=== PATIENT | male | born 1970 | race Caucasian/White ===

== ENCOUNTER 2018-11-20 00:24 | Day surgery (SDC) | payer OTHER, BC ==
[~2018-11-20 00:24] MED LIST: ATOR20 PO; AZIT250 PO; CEPH500 PO; CYCL10; CYCL10 PO; FEXPSEER PO; GEMF600 PO; HYDACE5 PO; HYDCHL25 PO; HYDMOR2; LEVO750 PO; LISI5 PO; NAPR500 PO; OXYACE5T PO; OXYC10ER PO; PROC10 PO; SULTRISS PO; Valium5 MG PO; ZOLP10; [UNRECOGNIZED DRUG - OTHER] PO; [UNRECOGNIZED DRUG - REMARK]; [UNRECOGNIZED DRUG - REMARK]
[2018-11-20] MEDS ORDERED: PROC5 PO (15:06)
[2018-11-20] MEDS ORDERED: CYCL10 PO (15:07)
[2018-11-20] MEDS ORDERED: MECL12.5 PO (15:07)
[2018-11-21] MEDS ORDERED: Invanz1 GM IV (14:19)
== END 2018-11-20 22:37 | disposition home or self-care (01) ==
LOC: ATC 00:24
DX: M86.9 Osteomyelitis, unspecified (principal)
CPT/HCPCS: 36569; 96365; C1751; J1335

== ENCOUNTER 2018-11-21 00:09 | Day surgery (SDC) | payer OTHER, BC ==
[~2018-11-21 00:09] MED LIST changes: +MECL12.5 PO; +PROC5 PO
[2018-11-21] MEDS ORDERED: Invanz1 GM IV (14:19)
== END 2018-11-21 14:32 | disposition home or self-care (01) ==
LOC: ATC 00:09
DX: M86.9 Osteomyelitis, unspecified (principal)
CPT/HCPCS: 96365; J1335

== ENCOUNTER 2018-11-22 00:21 | Day surgery (SDC) | payer OTHER, BC ==
[~2018-11-22 00:21] MED LIST changes: +Invanz1 GM IV
== END 2018-11-22 14:25 | disposition home or self-care (01) ==
LOC: ATC 00:21
DX: M86.9 Osteomyelitis, unspecified (principal)
CPT/HCPCS: 96365; J1335

== ENCOUNTER 2018-11-23 00:04 | Day surgery (SDC) | payer OTHER, BC | END 2018-11-23 14:43 | disposition home or self-care (01) | LOC: ATC 00:04 | DX: M86.9 Osteomyelitis, unspecified (principal) | CPT/HCPCS: 96365; J1335 ==

== ENCOUNTER 2018-11-24 14:32 | Day surgery (SDC) | payer OTHER, BC | END 2018-11-24 15:05 | disposition home or self-care (01) | LOC: ATC 14:32 | DX: M86.9 Osteomyelitis, unspecified (principal); Z88.1 Allergy status to other antibiotic agents; Z88.5 Allergy status to narcotic agent; Z88.0 Allergy status to penicillin; Z88.2 Allergy status to sulfonamides | CPT/HCPCS: 96365; J1335 ==

== ENCOUNTER 2018-11-25 13:50 | Day surgery (SDC) | payer OTHER, BC | END 2018-11-25 14:35 | disposition home or self-care (01) | LOC: ATC 13:50 | DX: M86.9 Osteomyelitis, unspecified (principal) | CPT/HCPCS: 96365; J1335 ==

== ENCOUNTER 2018-11-26 00:17 | Day surgery (SDC) | payer OTHER, BC | END 2018-11-26 14:53 | disposition home or self-care (01) | LOC: ATC 00:17 | DX: M86.9 Osteomyelitis, unspecified (principal); Z88.1 Allergy status to other antibiotic agents; Z88.5 Allergy status to narcotic agent; Z88.0 Allergy status to penicillin; Z88.2 Allergy status to sulfonamides | CPT/HCPCS: 96365; J1335 ==

== ENCOUNTER 2018-11-27 00:06 | Day surgery (SDC) | payer OTHER, BC ==
[2018-11-27 15:16] LABS: BASOPHILS ABSOLUTE AUTO 0.04 K/mm3 (0.00-0.23); BASOPHILS PERCENT AUTO 1 % (0-2); EOSINOPHILS ABSOLUTE AUTO 0.15 K/mm3 (0.00-0.68); EOSINOPHILS PERCENT AUTO 3 % (0-6); Hematocrit 44.5 % (37.0-53.0); Hemoglobin 14.9 g/dL (13.5-17.5); IMMATURE GRAN ABSOLUTE AUTO 0.01 K/mm3 (0.00-0.10); IMMATURE GRAN PERCENT AUTO 0 % (0-1); LYMPHOCYTES ABSOLUTE AUTO 1.15 K/mm3 (0.84-5.20); LYMPHOCYTES PERCENT AUTO 25 % (21-46); MONOCYTES ABSOLUTE AUTO 0.42 K/mm3 (0.16-1.47); MONOCYTES PERCENT AUTO 9 % (4-13); Mean Corpuscular HGB Conc 33.5 g/dL (31.5-36.5); Mean Corpuscular Volume 90 fL (80-100); Mean Platelet Volume 8.8 fL (9.1-12.4); NEUTROPHILS ABSOLUTE AUTO 2.87 K/mm3 (1.96-9.15); NEUTROPHILS PERCENT AUTO 62 % (41-73); Platelet Count 279 K/mm3 (150-400); RDW Coefficient Variation 12.1 % (11.7-14.2); RDW Standard Deviation 39.7 fL (35.1-46.3); Red Blood Cell Count 4.96 M/mm3 (4.30-5.90); White Blood Cell Count 4.64 K/mm3 (4.00-11.30)
[2018-11-27 15:37] LABS: C-REACTIVE PROTEIN, EXT RANGE <0.290 mg/dL (0.000-0.300)
[2018-11-27 15:52] LABS: Alanine Aminotransfer (ALT/SGP 44 U/L (12-78); Albumin, Blood 3.8 g/dL (3.4-5.0); Albumin/Globulin Ratio 1.2 (0.8-1.8); Alk Phos 66 U/L (50-136); Anion Gap 6 mmol/L (6-16); Aspartate Aminotrans (AST/SGOT 33 U/L (12-37); Bilirubin, Total 0.6 mg/dL (0.1-1.0); Blood Urea Nitrogen 14 mg/dL (8-24); Bun/Creatinine Ratio 30.5 (12.0-20.0); CO2, Blood 27 mmol/L (21-32); Calcium, Blood 8.2 mg/dL (8.5-10.1); Chloride, Blood 109 mmol/L (98-108); Creatinine, Blood 0.46 mg/dL (0.60-1.20); Globulin, Blood 3.1 g/dL (2.2-4.0); Glomerular Filtration Rate >60 (60-); Glucose, Blood 105 mg/dL (70-99); Potassium, Blood 3.8 mmol/L (3.5-5.5); Sodium, Blood 142 mmol/L (136-145); Total Protein, Blood 6.9 g/dL (6.4-8.2)
== END 2018-11-27 15:15 | disposition home or self-care (01) ==
LOC: ATC 00:06
PROVIDERS: Internal Medicine Infectious Disease
DX: M86.9 Osteomyelitis, unspecified (principal)
CPT/HCPCS: 80053; 85025; 85651; 86140; 96365; J1335

== ENCOUNTER 2018-11-28 00:46 | Day surgery (SDC) | payer OTHER, BC | END 2018-11-28 14:43 | disposition home or self-care (01) | LOC: ATC 00:46 | DX: M86.9 Osteomyelitis, unspecified (principal) | CPT/HCPCS: 96365; J1335 ==

== ENCOUNTER 2018-11-29 00:06 | Day surgery (SDC) | payer OTHER, BC | END 2018-11-29 09:45 | disposition home or self-care (01) | LOC: ATC 00:06 | DX: M86.9 Osteomyelitis, unspecified (principal) | CPT/HCPCS: 96365; J1335 ==

== ENCOUNTER 2018-11-30 00:46 | Day surgery (SDC) | payer OTHER, BC | END 2018-11-30 08:52 | disposition home or self-care (01) | LOC: ATC 00:46 | DX: M86.9 Osteomyelitis, unspecified (principal) | CPT/HCPCS: J1335 ==

== ENCOUNTER 2018-12-01 09:34 | Day surgery (SDC) | payer OTHER, BC | END 2018-12-01 23:13 | disposition home or self-care (01) | LOC: ATC 09:34 | DX: M86.9 Osteomyelitis, unspecified (principal) | CPT/HCPCS: J1335 ==

== ENCOUNTER 2018-12-03 00:12 | Day surgery (SDC) | payer OTHER, BC | END 2018-12-03 22:35 | disposition home or self-care (01) | LOC: ATC 00:12 | DX: M86.9 Osteomyelitis, unspecified (principal); Z95.828 Presence of other vascular implants and grafts | CPT/HCPCS: 96365; J1335 ==

== ENCOUNTER 2018-12-05 00:04 | Day surgery (SDC) | payer OTHER, BC | END 2018-12-05 09:50 | disposition home or self-care (01) | LOC: ATC 00:04 | DX: M86.9 Osteomyelitis, unspecified (principal) | CPT/HCPCS: 96365; J1335 ==

== ENCOUNTER 2018-12-06 00:03 | Day surgery (SDC) | payer OTHER, BC ==
[2018-12-06 10:11] LABS: BASOPHILS ABSOLUTE AUTO 0.04 K/mm3 (0.00-0.23); BASOPHILS PERCENT AUTO 1 % (0-2); EOSINOPHILS ABSOLUTE AUTO 0.09 K/mm3 (0.00-0.68); EOSINOPHILS PERCENT AUTO 2 % (0-6); Hematocrit 43.4 % (37.0-53.0); Hemoglobin 14.7 g/dL (13.5-17.5); IMMATURE GRAN ABSOLUTE AUTO 0.01 K/mm3 (0.00-0.10); IMMATURE GRAN PERCENT AUTO 0 % (0-1); LYMPHOCYTES ABSOLUTE AUTO 1.05 K/mm3 (0.84-5.20); LYMPHOCYTES PERCENT AUTO 27 % (21-46); MONOCYTES ABSOLUTE AUTO 0.34 K/mm3 (0.16-1.47); MONOCYTES PERCENT AUTO 9 % (4-13); Mean Corpuscular HGB 29.9 pg (26.0-34.0); Mean Corpuscular HGB Conc 33.9 g/dL (31.5-36.5); Mean Corpuscular Volume 88 fL (80-100); Mean Platelet Volume 8.7 fL (9.1-12.4); NEUTROPHILS ABSOLUTE AUTO 2.43 K/mm3 (1.96-9.15); NEUTROPHILS PERCENT AUTO 61 % (41-73); Platelet Count 267 K/mm3 (150-400); RDW Standard Deviation 38.7 fL (35.1-46.3); Red Blood Cell Count 4.92 M/mm3 (4.30-5.90); White Blood Cell Count 3.96 K/mm3 (4.00-11.30)
[2018-12-06 10:44] LABS: C-REACTIVE PROTEIN, EXT RANGE <0.290 mg/dL (0.000-0.300)
[2018-12-06 10:58] LABS: Alanine Aminotransfer (ALT/SGP 39 U/L (12-78); Albumin, Blood 3.9 g/dL (3.4-5.0); Albumin/Globulin Ratio 1.3 (0.8-1.8); Alk Phos 68 U/L (50-136); Anion Gap 5 mmol/L (6-16); Aspartate Aminotrans (AST/SGOT 28 U/L (12-37); Bilirubin, Total 0.9 mg/dL (0.1-1.0); Blood Urea Nitrogen 11 mg/dL (8-24); CO2, Blood 29 mmol/L (21-32); Calcium, Blood 8.9 mg/dL (8.5-10.1); Chloride, Blood 108 mmol/L (98-108); Creatinine, Blood 0.61 mg/dL (0.60-1.20); Globulin, Blood 3.1 g/dL (2.2-4.0); Glomerular Filtration Rate >60 (60-); Glucose, Blood 93 mg/dL (70-99); Potassium, Blood 4.2 mmol/L (3.5-5.5); Sodium, Blood 142 mmol/L (136-145)
== END 2018-12-07 13:10 | disposition home or self-care (01) ==
LOC: ATC 00:03
PROVIDERS: Internal Medicine Infectious Disease
DX: M86.9 Osteomyelitis, unspecified (principal)
CPT/HCPCS: 80053; 85025; 85651; 86140; 96365; J1335

== ENCOUNTER 2018-12-10 00:34 | Day surgery (SDC) | payer OTHER, BC | END 2018-12-10 09:43 | disposition home or self-care (01) | LOC: ATC 00:34 | DX: M86.9 Osteomyelitis, unspecified (principal) | CPT/HCPCS: J1335 ==

== ENCOUNTER 2018-12-11 09:05 | Day surgery (SDC) | payer OTHER, BC ==
[2018-12-11 10:07] LABS: BASOPHILS ABSOLUTE AUTO 0.05 K/mm3 (0.00-0.23); BASOPHILS PERCENT AUTO 1 % (0-2); EOSINOPHILS ABSOLUTE AUTO 0.13 K/mm3 (0.00-0.68); EOSINOPHILS PERCENT AUTO 3 % (0-6); Hematocrit 44.3 % (37.0-53.0); Hemoglobin 14.7 g/dL (13.5-17.5); IMMATURE GRAN ABSOLUTE AUTO 0.01 K/mm3 (0.00-0.10); IMMATURE GRAN PERCENT AUTO 0 % (0-1); LYMPHOCYTES ABSOLUTE AUTO 1.04 K/mm3 (0.84-5.20); LYMPHOCYTES PERCENT AUTO 25 % (21-46); MONOCYTES ABSOLUTE AUTO 0.39 K/mm3 (0.16-1.47); MONOCYTES PERCENT AUTO 9 % (4-13); Mean Corpuscular HGB 29.5 pg (26.0-34.0); Mean Corpuscular HGB Conc 33.2 g/dL (31.5-36.5); Mean Corpuscular Volume 89 fL (80-100); Mean Platelet Volume 8.9 fL (9.1-12.4); NEUTROPHILS ABSOLUTE AUTO 2.52 K/mm3 (1.96-9.15); NEUTROPHILS PERCENT AUTO 61 % (41-73); Platelet Count 256 K/mm3 (150-400); RDW Coefficient Variation 12.2 % (11.7-14.2); RDW Standard Deviation 39.6 fL (35.1-46.3); Red Blood Cell Count 4.99 M/mm3 (4.30-5.90); White Blood Cell Count 4.14 K/mm3 (4.00-11.30)
[2018-12-11 10:35] LABS: Alanine Aminotransfer (ALT/SGP 32 U/L (12-78); Albumin, Blood 3.8 g/dL (3.4-5.0); Albumin/Globulin Ratio 1.2 (0.8-1.8); Alk Phos 70 U/L (50-136); Anion Gap 8 mmol/L (6-16); Aspartate Aminotrans (AST/SGOT 21 U/L (12-37); Bilirubin, Total 0.9 mg/dL (0.1-1.0); Blood Urea Nitrogen 10 mg/dL (8-24); Bun/Creatinine Ratio 24.6 (12.0-20.0); C-REACTIVE PROTEIN, EXT RANGE <0.290 mg/dL (0.000-0.300); CO2, Blood 28 mmol/L (21-32); Calcium, Blood 8.6 mg/dL (8.5-10.1); Chloride, Blood 106 mmol/L (98-108); Creatinine, Blood 0.41 mg/dL (0.60-1.20); Globulin, Blood 3.1 g/dL (2.2-4.0); Glomerular Filtration Rate >60 (60-); Glucose, Blood 79 mg/dL (70-99); Potassium, Blood 4.1 mmol/L (3.5-5.5); Sodium, Blood 142 mmol/L (136-145); Total Protein, Blood 6.9 g/dL (6.4-8.2)
== END 2018-12-11 09:59 | disposition home or self-care (01) ==
LOC: ATC 09:05
PROVIDERS: Internal Medicine Infectious Disease
DX: M86.9 Osteomyelitis, unspecified (principal)
CPT/HCPCS: 80053; 85025; 85651; 86140; 96365; J1335

== ENCOUNTER 2018-12-12 00:40 | Day surgery (SDC) | payer OTHER, BC | END 2018-12-12 11:30 | disposition home or self-care (01) | LOC: ATC 00:40 | DX: M86.9 Osteomyelitis, unspecified (principal) | CPT/HCPCS: 96365; J1335 ==

== ENCOUNTER 2018-12-13 05:14 | Day surgery (SDC) | payer OTHER, BC | END 2018-12-13 11:35 | disposition home or self-care (01) | LOC: ATC 05:14 | DX: M86.9 Osteomyelitis, unspecified (principal) | CPT/HCPCS: 96365; J1335 ==

== ENCOUNTER 2018-12-15 08:48 | Day surgery (SDC) | payer OTHER, BC | END 2018-12-15 09:17 | disposition home or self-care (01) | LOC: ATC 08:48 | DX: M86.9 Osteomyelitis, unspecified (principal) | CPT/HCPCS: J1335 ==

== ENCOUNTER 2018-12-16 07:49 | Day surgery (SDC) | payer OTHER, BC | END 2018-12-16 08:13 | disposition home or self-care (01) | LOC: ATC 07:49 | DX: M86.9 Osteomyelitis, unspecified (principal) | CPT/HCPCS: 96365; J1335 ==

== ENCOUNTER 2018-12-17 00:08 | Day surgery (SDC) | payer OTHER, BC | END 2018-12-17 22:44 | disposition home or self-care (01) | LOC: ATC 00:08 | DX: M86.9 Osteomyelitis, unspecified (principal) | CPT/HCPCS: 96365; J1335 ==

== ENCOUNTER 2018-12-19 00:14 | Day surgery (SDC) | payer OTHER, BC | END 2018-12-19 09:33 | disposition home or self-care (01) | LOC: ATC 00:14 | DX: M86.9 Osteomyelitis, unspecified (principal) | CPT/HCPCS: 96365; J1335 ==

== ENCOUNTER 2018-12-20 00:14 | Day surgery (SDC) | payer OTHER, BC | END 2018-12-20 08:13 | disposition home or self-care (01) | LOC: ATC 00:14 | DX: M86.9 Osteomyelitis, unspecified (principal) | CPT/HCPCS: 96365; J1335 ==

== ENCOUNTER 2018-12-22 08:50 | Day surgery (SDC) | payer OTHER, BC | END 2018-12-22 09:29 | disposition home or self-care (01) | LOC: ATC 08:50 | DX: M86.9 Osteomyelitis, unspecified (principal) | CPT/HCPCS: J1335 ==

== ENCOUNTER 2018-12-24 00:28 | Day surgery (SDC) | payer OTHER, BC | END 2018-12-24 09:32 | disposition home or self-care (01) | LOC: ATC 00:28 | DX: M86.9 Osteomyelitis, unspecified (principal) | CPT/HCPCS: J1335 ==

== ENCOUNTER 2018-12-25 00:10 | Day surgery (SDC) | payer OTHER, BC ==
[2018-12-25 09:25] LABS: BASOPHILS ABSOLUTE AUTO 0.04 K/mm3 (0.00-0.23); BASOPHILS PERCENT AUTO 1 % (0-2); EOSINOPHILS ABSOLUTE AUTO 0.15 K/mm3 (0.00-0.68); EOSINOPHILS PERCENT AUTO 3 % (0-6); Hematocrit 43.2 % (37.0-53.0); Hemoglobin 14.2 g/dL (13.5-17.5); IMMATURE GRAN ABSOLUTE AUTO 0.01 K/mm3 (0.00-0.10); IMMATURE GRAN PERCENT AUTO 0 % (0-1); LYMPHOCYTES ABSOLUTE AUTO 1.14 K/mm3 (0.84-5.20); LYMPHOCYTES PERCENT AUTO 24 % (21-46); MONOCYTES ABSOLUTE AUTO 0.47 K/mm3 (0.16-1.47); MONOCYTES PERCENT AUTO 10 % (4-13); Mean Corpuscular HGB 29.3 pg (26.0-34.0); Mean Corpuscular HGB Conc 32.9 g/dL (31.5-36.5); Mean Corpuscular Volume 89 fL (80-100); Mean Platelet Volume 8.7 fL (9.1-12.4); NEUTROPHILS ABSOLUTE AUTO 2.88 K/mm3 (1.96-9.15); NEUTROPHILS PERCENT AUTO 61 % (41-73); Platelet Count 269 K/mm3 (150-400); RDW Coefficient Variation 12.2 % (11.7-14.2); Red Blood Cell Count 4.85 M/mm3 (4.30-5.90); White Blood Cell Count 4.69 K/mm3 (4.00-11.30)
[2018-12-25 09:39] LABS: C-REACTIVE PROTEIN, EXT RANGE 0.293 mg/dL (0.000-0.300)
[2018-12-25 09:58] LABS: Alanine Aminotransfer (ALT/SGP 27 U/L (12-78); Albumin, Blood 3.7 g/dL (3.4-5.0); Albumin/Globulin Ratio 1.1 (0.8-1.8); Alk Phos 80 U/L (50-136); Anion Gap 3 mmol/L (6-16); Aspartate Aminotrans (AST/SGOT 18 U/L (12-37); Bilirubin, Total 0.8 mg/dL (0.1-1.0); Blood Urea Nitrogen 12 mg/dL (8-24); Bun/Creatinine Ratio 26.9 (12.0-20.0); CO2, Blood 30 mmol/L (21-32); Calcium, Blood 8.6 mg/dL (8.5-10.1); Chloride, Blood 110 mmol/L (98-108); Creatinine, Blood 0.45 mg/dL (0.60-1.20); Globulin, Blood 3.4 g/dL (2.2-4.0); Glomerular Filtration Rate >60 (60-); Glucose, Blood 80 mg/dL (70-99); Potassium, Blood 4.1 mmol/L (3.5-5.5); Sodium, Blood 143 mmol/L (136-145); Total Protein, Blood 7.1 g/dL (6.4-8.2)
== END 2018-12-25 09:28 | disposition home or self-care (01) ==
LOC: ATC 00:10
PROVIDERS: Internal Medicine Infectious Disease
DX: M86.9 Osteomyelitis, unspecified (principal)
CPT/HCPCS: 80053; 85025; 85651; 86140; 96365; J1335

== ENCOUNTER 2018-12-27 00:26 | Day surgery (SDC) | payer OTHER, BC | END 2018-12-27 09:33 | disposition home or self-care (01) | LOC: ATC 00:26 | DX: M86.9 Osteomyelitis, unspecified (principal) | CPT/HCPCS: 96365; J1335 ==

== ENCOUNTER 2018-12-28 00:20 | Day surgery (SDC) | payer OTHER, BC | END 2018-12-28 09:28 | disposition home or self-care (01) | LOC: ATC 00:20 | DX: M86.9 Osteomyelitis, unspecified (principal) | CPT/HCPCS: 96365; J1335 ==

== ENCOUNTER → 2020-10-10 | Outpatient (CLI) | payer OTHER ==
[2020-10-10 14:21] LABS: BASOPHILS ABSOLUTE AUTO 0.05 K/mm3 (0.00-0.23); BASOPHILS PERCENT AUTO 1 % (0-2); EOSINOPHILS ABSOLUTE AUTO 0.17 K/mm3 (0.00-0.68); EOSINOPHILS PERCENT AUTO 3 % (0-6); Hematocrit 45.6 % (37.0-53.0); Hemoglobin 15.5 g/dL (13.5-17.5); IMMATURE GRAN ABSOLUTE AUTO 0.01 K/mm3 (0.00-0.10); IMMATURE GRAN PERCENT AUTO 0 % (0-1); LYMPHOCYTES ABSOLUTE AUTO 0.79 K/mm3 (0.84-5.20); LYMPHOCYTES PERCENT AUTO 14 % (21-46); MONOCYTES ABSOLUTE AUTO 0.59 K/mm3 (0.16-1.47); MONOCYTES PERCENT AUTO 11 % (4-13); Mean Corpuscular HGB 30.9 pg (26.0-34.0); Mean Corpuscular Volume 91 fL (80-100); Mean Platelet Volume 8.7 fL (9.1-12.4); NEUTROPHILS ABSOLUTE AUTO 4.03 K/mm3 (1.96-9.15); NEUTROPHILS PERCENT AUTO 71 % (41-73); Platelet Count 204 K/mm3 (150-400); RDW Coefficient Variation 12.7 % (11.7-14.2); RDW Standard Deviation 41.5 fL (35.1-46.3); Red Blood Cell Count 5.01 M/mm3 (4.30-5.90); White Blood Cell Count 5.64 K/mm3 (4.00-11.30)
[2020-10-10 14:33] LABS: Alanine Aminotransfer (ALT/SGP 22 U/L (12-78); Albumin/Globulin Ratio 1.2 (0.8-1.8); Alk Phos 61 U/L (40-126); Anion Gap 7 mmol/L (6-16); Aspartate Aminotrans (AST/SGOT 16 U/L (12-37); Bilirubin, Total 0.7 mg/dL (0.1-1.0); Blood Urea Nitrogen 9 mg/dL (8-24); CO2, Blood 32 mmol/L (21-32); Calcium, Blood 8.8 mg/dL (8.5-10.1); Chloride, Blood 101 mmol/L (98-108); Creatinine, Blood 0.69 mg/dL (0.60-1.20); Globulin, Blood 3.4 g/dL (2.2-4.0); Glomerular Filtration Rate >60 (60-); Glucose, Blood 75 mg/dL (70-99); Potassium, Blood 3.8 mmol/L (3.5-5.5); Sodium, Blood 140 mmol/L (136-145); Total Protein, Blood 7.4 g/dL (6.4-8.2)
== END ==
LOC: LAB SHORT 14:18
PROVIDERS: General Practice
DX: L03.119 Cellulitis of unspecified part of limb (principal)
CPT/HCPCS: 80053; 85025

== ENCOUNTER 2020-10-20 00:26 | Day surgery (SDC) | payer OTHER | END 2020-10-20 22:46 | disposition home or self-care (01) | LOC: WOUND 00:26 | DX: E11.621 Type 2 diabetes mellitus with foot ulcer (principal); L97.512 Non-pressure chronic ulcer of other part of right foot with fat layer exposed; E11.40 Type 2 diabetes mellitus with diabetic neuropathy, unspecified; C92.11 Chronic myeloid leukemia, BCR/ABL-positive, in remission; I10 Essential (primary) hypertension; J45.909 Unspecified asthma, uncomplicated; G47.30 Sleep apnea, unspecified; M19.90 Unspecified osteoarthritis, unspecified site; F17.200 Nicotine dependence, unspecified, uncomplicated; Z88.1 Allergy status to other antibiotic agents; Z88.5 Allergy status to narcotic agent; Z88.0 Allergy status to penicillin; Z88.2 Allergy status to sulfonamides; Z98.84 Bariatric surgery status | CPT/HCPCS: A9270; G0463 ==

== ENCOUNTER 2020-10-27 00:21 | Day surgery (SDC) | payer OTHER | END 2020-10-27 23:10 | disposition home or self-care (01) | LOC: WOUND 00:21 | DX: I96 Gangrene, not elsewhere classified (principal); L89.893 Pressure ulcer of other site, stage 3; E11.52 Type 2 diabetes mellitus with diabetic peripheral angiopathy with gangrene; E11.40 Type 2 diabetes mellitus with diabetic neuropathy, unspecified; J45.909 Unspecified asthma, uncomplicated; G47.33 Obstructive sleep apnea (adult) (pediatric); M19.90 Unspecified osteoarthritis, unspecified site; Z88.0 Allergy status to penicillin; Z88.1 Allergy status to other antibiotic agents; Z88.2 Allergy status to sulfonamides; Z88.5 Allergy status to narcotic agent; Z79.899 Other long term (current) drug therapy | CPT/HCPCS: A9270 ==

== ENCOUNTER 2020-11-03 00:25 | Day surgery (SDC) | payer OTHER | END 2020-11-03 22:48 | disposition home or self-care (01) | LOC: WOUND 00:25 | DX: L89.893 Pressure ulcer of other site, stage 3 (principal); I10 Essential (primary) hypertension; E11.9 Type 2 diabetes mellitus without complications; J45.909 Unspecified asthma, uncomplicated; K21.9 Gastro-esophageal reflux disease without esophagitis; E78.5 Hyperlipidemia, unspecified; G47.33 Obstructive sleep apnea (adult) (pediatric); G62.9 Polyneuropathy, unspecified; R26.9 Unspecified abnormalities of gait and mobility | CPT/HCPCS: A9270 ==

== ENCOUNTER 2020-11-10 00:11 | Day surgery (SDC) | payer OTHER | END 2020-11-10 23:45 | LOC: WOUND 00:11 | DX: L89.893 Pressure ulcer of other site, stage 3 (principal); E11.42 Type 2 diabetes mellitus with diabetic polyneuropathy; I10 Essential (primary) hypertension ==

== ENCOUNTER 2020-11-17 00:38 | Day surgery (SDC) | payer OTHER | END 2020-11-17 22:53 | disposition home or self-care (01) | LOC: WOUND 00:38 | DX: L89.893 Pressure ulcer of other site, stage 3 (principal); R93.6 Abnormal findings on diagnostic imaging of limbs; E11.42 Type 2 diabetes mellitus with diabetic polyneuropathy; I10 Essential (primary) hypertension; J45.909 Unspecified asthma, uncomplicated | CPT/HCPCS: A9270 ==

== ENCOUNTER 2020-11-24 01:09 | Day surgery (SDC) | payer OTHER | END 2020-11-24 23:45 | disposition home or self-care (01) | LOC: WOUND 01:09 | DX: L89.893 Pressure ulcer of other site, stage 3 (principal); E11.42 Type 2 diabetes mellitus with diabetic polyneuropathy; E11.69 Type 2 diabetes mellitus with other specified complication; M86.8X7 Other osteomyelitis, ankle and foot; J45.909 Unspecified asthma, uncomplicated; K21.9 Gastro-esophageal reflux disease without esophagitis; E78.5 Hyperlipidemia, unspecified; G47.33 Obstructive sleep apnea (adult) (pediatric); C92.90 Myeloid leukemia, unspecified, not having achieved remission; I10 Essential (primary) hypertension; I72.9 Aneurysm of unspecified site | CPT/HCPCS: A9270; G0463 ==

== ENCOUNTER 2020-12-17 00:16 | Day surgery (SDC) | payer OTHER | END 2020-12-17 22:55 | disposition home or self-care (01) | LOC: WOUND 00:16 | DX: L89.893 Pressure ulcer of other site, stage 3 (principal); E11.42 Type 2 diabetes mellitus with diabetic polyneuropathy; R93.6 Abnormal findings on diagnostic imaging of limbs; J45.909 Unspecified asthma, uncomplicated; I10 Essential (primary) hypertension; M19.079 Primary osteoarthritis, unspecified ankle and foot | CPT/HCPCS: G0463 ==

== ENCOUNTER 2021-05-03 09:04 | Day surgery (SDC) | payer OTHER | END 2021-05-03 12:00 | disposition home or self-care (01) | LOC: WOUND 09:04 | DX: L89.892 Pressure ulcer of other site, stage 2 (principal); E11.621 Type 2 diabetes mellitus with foot ulcer; J45.909 Unspecified asthma, uncomplicated; K21.9 Gastro-esophageal reflux disease without esophagitis; E78.5 Hyperlipidemia, unspecified; I10 Essential (primary) hypertension; F17.210 Nicotine dependence, cigarettes, uncomplicated; Z88.0 Allergy status to penicillin; Z88.8 Allergy status to other drugs, medicaments and biological substances; Z88.5 Allergy status to narcotic agent; Z88.1 Allergy status to other antibiotic agents; Z88.2 Allergy status to sulfonamides | CPT/HCPCS: G0463 ==

== ENCOUNTER 2021-05-17 00:20 | Day surgery (SDC) | payer OTHER | END 2021-05-17 22:54 | disposition home or self-care (01) | LOC: WOUND 00:20 | DX: L89.892 Pressure ulcer of other site, stage 2 (principal); I10 Essential (primary) hypertension; E11.621 Type 2 diabetes mellitus with foot ulcer; K21.9 Gastro-esophageal reflux disease without esophagitis; E78.5 Hyperlipidemia, unspecified; G47.33 Obstructive sleep apnea (adult) (pediatric) | CPT/HCPCS: A9270; G0463 ==

== ENCOUNTER 2021-05-31 02:29 | Day surgery (SDC) | payer OTHER | END 2021-05-31 23:25 | disposition home or self-care (01) | LOC: WOUND 02:29 | DX: Z09 Encounter for follow-up examination after completed treatment for conditions other than malignant neoplasm (principal); E11.9 Type 2 diabetes mellitus without complications; C92.10 Chronic myeloid leukemia, BCR/ABL-positive, not having achieved remission; Z79.899 Other long term (current) drug therapy; Z87.2 Personal history of diseases of the skin and subcutaneous tissue | CPT/HCPCS: G0463 ==

== ENCOUNTER → 2022-02-26 | Outpatient (CLI) | payer OTHER ==
[2022-02-26 11:44] LABS: BASOPHILS ABSOLUTE AUTO 0.04 K/mm3 (0.00-0.23); BASOPHILS PERCENT AUTO 1 % (0-2); EOSINOPHILS ABSOLUTE AUTO 0.19 K/mm3 (0.00-0.68); EOSINOPHILS PERCENT AUTO 2 % (0-6); Hematocrit 44.6 % (37.0-53.0); Hemoglobin 15.1 g/dL (13.5-17.5); IMMATURE GRAN ABSOLUTE AUTO 0.02 K/mm3 (0.00-0.10); IMMATURE GRAN PERCENT AUTO 0 % (0-1); LYMPHOCYTES ABSOLUTE AUTO 0.98 K/mm3 (0.84-5.20); LYMPHOCYTES PERCENT AUTO 12 % (21-46); MONOCYTES ABSOLUTE AUTO 0.94 K/mm3 (0.16-1.47); MONOCYTES PERCENT AUTO 11 % (4-13); Mean Corpuscular HGB 31.6 pg (26.0-34.0); Mean Corpuscular HGB Conc 33.9 g/dL (31.5-36.5); Mean Corpuscular Volume 93 fL (80-100); Mean Platelet Volume 8.5 fL (9.1-12.4); NEUTROPHILS ABSOLUTE AUTO 6.08 K/mm3 (1.96-9.15); NEUTROPHILS PERCENT AUTO 74 % (41-73); Platelet Count 243 K/mm3 (150-400); RDW Coefficient Variation 12.9 % (11.7-14.2); RDW Standard Deviation 44.2 fL (35.1-46.3); Red Blood Cell Count 4.78 M/mm3 (4.30-5.90); White Blood Cell Count 8.25 K/mm3 (4.00-11.30)
== END ==
LOC: LAB SHORT 11:28 → LAB 11:28
PROVIDERS: General Practice
DX: L03.031 Cellulitis of right toe (principal)
CPT/HCPCS: 85025

== ENCOUNTER → 2023-01-31 | Outpatient (CLI) | payer OTHER | END | disposition home or self-care (01) | LOC: LAB 08:57 → LAB SHORT 08:57 | DX: L03.031 Cellulitis of right toe (principal) | CPT/HCPCS: 87070; 87075; 87205 ==

== ENCOUNTER 2023-03-16 03:23 | Day surgery (SDC) | payer OTHER | END 2023-03-16 22:40 | disposition home or self-care (01) | LOC: WOUND 03:23 | DX: E11.621 Type 2 diabetes mellitus with foot ulcer (principal); L97.516 Non-pressure chronic ulcer of other part of right foot with bone involvement without evidence of necrosis; L08.9 Local infection of the skin and subcutaneous tissue, unspecified; E11.69 Type 2 diabetes mellitus with other specified complication; M86.171 Other acute osteomyelitis, right ankle and foot; K21.9 Gastro-esophageal reflux disease without esophagitis; E78.5 Hyperlipidemia, unspecified; I10 Essential (primary) hypertension; G47.33 Obstructive sleep apnea (adult) (pediatric); Z88.0 Allergy status to penicillin; Z88.2 Allergy status to sulfonamides; Z88.5 Allergy status to narcotic agent; Z88.1 Allergy status to other antibiotic agents | CPT/HCPCS: A9270; G0463 ==

== ENCOUNTER 2024-07-01 04:04 | Day surgery (SDC) | payer OTHER, MEDICARE ==
[~2024-07-01 04:04] MED LIST changes: +GABA300 PO
== END 2024-07-01 23:00 ==
LOC: WOUND 04:04
DX: E11.621 Type 2 diabetes mellitus with foot ulcer (principal); L97.428 Non-pressure chronic ulcer of left heel and midfoot with other specified severity; L97.512 Non-pressure chronic ulcer of other part of right foot with fat layer exposed; E11.51 Type 2 diabetes mellitus with diabetic peripheral angiopathy without gangrene; L89.90 Pressure ulcer of unspecified site, unspecified stage
CPT/HCPCS: G0463

== ENCOUNTER 2024-07-09 02:05 | Day surgery (SDC) | payer OTHER, MEDICARE | END 2024-07-09 23:05 | disposition home or self-care (01) | LOC: WOUND 02:05 | DX: E11.621 Type 2 diabetes mellitus with foot ulcer (principal); L97.512 Non-pressure chronic ulcer of other part of right foot with fat layer exposed; L97.522 Non-pressure chronic ulcer of other part of left foot with fat layer exposed; L89.90 Pressure ulcer of unspecified site, unspecified stage; E11.51 Type 2 diabetes mellitus with diabetic peripheral angiopathy without gangrene; J45.909 Unspecified asthma, uncomplicated; K21.9 Gastro-esophageal reflux disease without esophagitis; E78.5 Hyperlipidemia, unspecified; I10 Essential (primary) hypertension; G47.33 Obstructive sleep apnea (adult) (pediatric) | CPT/HCPCS: G0463 ==

== ENCOUNTER 2024-07-16 03:18 | Day surgery (SDC) | payer OTHER, MEDICARE | END 2024-07-17 22:50 | disposition home or self-care (01) | LOC: WOUND 03:18 | DX: E11.621 Type 2 diabetes mellitus with foot ulcer (principal); L97.522 Non-pressure chronic ulcer of other part of left foot with fat layer exposed; L97.512 Non-pressure chronic ulcer of other part of right foot with fat layer exposed; E11.51 Type 2 diabetes mellitus with diabetic peripheral angiopathy without gangrene; I10 Essential (primary) hypertension; G47.33 Obstructive sleep apnea (adult) (pediatric); E78.5 Hyperlipidemia, unspecified; K21.9 Gastro-esophageal reflux disease without esophagitis; Z98.84 Bariatric surgery status | CPT/HCPCS: G0463 ==

== ENCOUNTER 2024-07-23 02:24 | Day surgery (SDC) | payer OTHER, MEDICARE ==
[2024-07-23] MEDS ORDERED: Lidocaine HCl 4% Cream 5 GM ONE (09:49)
== END 2024-07-23 23:00 | disposition home or self-care (01) ==
LOC: WOUND 02:24
DX: E11.621 Type 2 diabetes mellitus with foot ulcer (principal); L97.422 Non-pressure chronic ulcer of left heel and midfoot with fat layer exposed; L97.512 Non-pressure chronic ulcer of other part of right foot with fat layer exposed; E11.51 Type 2 diabetes mellitus with diabetic peripheral angiopathy without gangrene; E78.5 Hyperlipidemia, unspecified; K21.9 Gastro-esophageal reflux disease without esophagitis; I10 Essential (primary) hypertension; G47.33 Obstructive sleep apnea (adult) (pediatric); L89.90 Pressure ulcer of unspecified site, unspecified stage
CPT/HCPCS: A6196; A9270

== ENCOUNTER 2024-07-30 04:14 | Day surgery (SDC) | payer OTHER, MEDICARE | END 2024-07-30 23:10 | disposition home or self-care (01) | LOC: WOUND 04:14 | DX: E11.621 Type 2 diabetes mellitus with foot ulcer (principal); L97.422 Non-pressure chronic ulcer of left heel and midfoot with fat layer exposed; L97.512 Non-pressure chronic ulcer of other part of right foot with fat layer exposed; J45.909 Unspecified asthma, uncomplicated; K21.9 Gastro-esophageal reflux disease without esophagitis; E78.5 Hyperlipidemia, unspecified; G47.33 Obstructive sleep apnea (adult) (pediatric); L89.90 Pressure ulcer of unspecified site, unspecified stage; E11.51 Type 2 diabetes mellitus with diabetic peripheral angiopathy without gangrene ==

== ENCOUNTER 2024-08-06 01:24 | Day surgery (SDC) | payer OTHER, MEDICARE | END 2024-08-06 23:00 | disposition home or self-care (01) | LOC: WOUND 01:24 | DX: E11.621 Type 2 diabetes mellitus with foot ulcer (principal); L97.512 Non-pressure chronic ulcer of other part of right foot with fat layer exposed; E11.51 Type 2 diabetes mellitus with diabetic peripheral angiopathy without gangrene; I10 Essential (primary) hypertension; E11.40 Type 2 diabetes mellitus with diabetic neuropathy, unspecified; J45.909 Unspecified asthma, uncomplicated | CPT/HCPCS: G0463 ==

== ENCOUNTER 2024-08-13 01:56 | Day surgery (SDC) | payer OTHER, MEDICARE | END 2024-08-13 23:00 | disposition home or self-care (01) | LOC: WOUND 01:56 | DX: E11.621 Type 2 diabetes mellitus with foot ulcer (principal); L97.512 Non-pressure chronic ulcer of other part of right foot with fat layer exposed; L89.90 Pressure ulcer of unspecified site, unspecified stage; E11.51 Type 2 diabetes mellitus with diabetic peripheral angiopathy without gangrene; J45.909 Unspecified asthma, uncomplicated; K21.9 Gastro-esophageal reflux disease without esophagitis; E78.5 Hyperlipidemia, unspecified; I10 Essential (primary) hypertension; G47.33 Obstructive sleep apnea (adult) (pediatric); Z98.84 Bariatric surgery status | CPT/HCPCS: G0463 ==

== ENCOUNTER 2024-08-20 01:58 | Day surgery (SDC) | payer OTHER, MEDICARE | END 2024-08-20 23:00 | disposition home or self-care (01) | LOC: WOUND 01:58 | DX: E11.621 Type 2 diabetes mellitus with foot ulcer (principal); L97.512 Non-pressure chronic ulcer of other part of right foot with fat layer exposed; L89.891 Pressure ulcer of other site, stage 1; E11.51 Type 2 diabetes mellitus with diabetic peripheral angiopathy without gangrene | CPT/HCPCS: G0463 ==

== ENCOUNTER 2024-09-03 01:06 | Day surgery (SDC) | payer OTHER, MEDICARE | END 2024-09-03 23:16 | disposition home or self-care (01) | LOC: WOUND 01:06 | DX: E11.621 Type 2 diabetes mellitus with foot ulcer (principal); L97.812 Non-pressure chronic ulcer of other part of right lower leg with fat layer exposed; L97.822 Non-pressure chronic ulcer of other part of left lower leg with fat layer exposed; E11.51 Type 2 diabetes mellitus with diabetic peripheral angiopathy without gangrene; J45.909 Unspecified asthma, uncomplicated; I10 Essential (primary) hypertension; E78.5 Hyperlipidemia, unspecified; K21.9 Gastro-esophageal reflux disease without esophagitis; G47.33 Obstructive sleep apnea (adult) (pediatric) ==

== ENCOUNTER 2024-09-10 04:38 | Day surgery (SDC) | payer OTHER, MEDICARE ==
[2024-09-10] MEDS ORDERED: Lidocaine HCl 4% Cream 5 GM ONE (09:50)
== END 2024-09-10 23:50 | disposition home or self-care (01) ==
LOC: WOUND 04:38
DX: E11.621 Type 2 diabetes mellitus with foot ulcer (principal); L97.512 Non-pressure chronic ulcer of other part of right foot with fat layer exposed; L89.90 Pressure ulcer of unspecified site, unspecified stage; K21.9 Gastro-esophageal reflux disease without esophagitis; E11.51 Type 2 diabetes mellitus with diabetic peripheral angiopathy without gangrene; E78.5 Hyperlipidemia, unspecified; I10 Essential (primary) hypertension; G47.33 Obstructive sleep apnea (adult) (pediatric)
CPT/HCPCS: A9270; G0463

== ENCOUNTER 2025-02-10 09:44 | Day surgery (SDC) | payer OTHER, MEDICARE ==
[~2025-02-10] VITALS: Ht 190.5 cm; Wt 105.7 kg
[2025-02-10] VITALS (14 sets, daily range): BP systolic 131–170; BP diastolic 74–143
[~2025-02-10 09:44] MED LIST changes: +Chantix1 MG PO; +LOSA25 PO; +Lactated Ringer's 1,000 ML IV SCH
--- NOTE | 2025-02-10 11:24 | NUR ---
History, Chart, Medications and Allergies reviewed before start of procedure. Ambulatory in Day Surgery. Pre-Op teaching done. Pt verbalizes understanding. Patient States Post-Procedure ride home has been arranged. Patient confirms NPO status and agrees with scheduled surgery.
[2025-02-10] MEDS ORDERED: propofoL 40 ML IV ONE (11:44)
--- NOTE | 2025-02-10 11:57 | NUR ---
02/10/25 1157 Tatianna Michaud CONFIRMED AND REVIEWED H&P, MEDCICATIONS, ALLERGIES, MEDICAL HISTORY, RESPIRATORY HISTORY, VITAL SIGNS, 3-LEAD EKG, CONSENTS, AND PHYSICIAN ORDERS. PATIENT CONFIRMS NPO STATUS AND AGREES WITH SCHEDULED PROCEDURE. MONITOR INTACT WITH CONTINUOUS PULSE OXIMETRY, CAPNOGRAPHY, 3-LEAD EKG, INTERMITTENT BP. SUPPLEMENTAL O2 TO BE TITRATED THROUGHOUT PROCEDURE TO MAINTAIN O2 SATURATION ABOVE 90%. PATIENT DETERMINED TO BE ASA APPROPRIATE FOR PROPOFOL SEDATION PRIOR TO START OF PROCEDURE BY DR. HURD MALLAMPATI CLASS 2 AIRWAY: COMPLETE VISUALIZATION OF THE UVULA.
--- NOTE | 2025-02-10 12:47 | NUR ---
Patient up to Ambulate independently. Gait steady. Discharge instructions reviewed with patient. Patient verbalizes understanding. Copy given to patient to take home. Patient States Post-Procedure ride home has been arranged. Discharged via wheelchair to private car for ride home. PT TOLERATING PO. REPORTS READY TO GO HOME. DENIES PAIN,N/V,SOB,CP. PT REPORTS NORMAL BP FOR HIM. PT REPORTS TAKING BP MEDS AT HOME.
== END 2025-02-10 12:47 | disposition home or self-care (01) ==
LOC: ORSCMMR 09:44 → ORD 11:00 → ORSCMMR 12:47
PROVIDERS: Internal Medicine Gastroenterology
PROC: 0DBM8ZX Excision of Descending Colon, Via Natural or Artificial Opening Endoscopic, Diagnostic (ICD-10-PCS; principal; 2025-02-10 11:00)
DX: Z12.11 Encounter for screening for malignant neoplasm of colon (principal); Z86.0100 Personal history of colon polyps, unspecified; D12.4 Benign neoplasm of descending colon; J44.9 Chronic obstructive pulmonary disease, unspecified; I10 Essential (primary) hypertension; C92.10 Chronic myeloid leukemia, BCR/ABL-positive, not having achieved remission; F17.210 Nicotine dependence, cigarettes, uncomplicated; Z79.899 Other long term (current) drug therapy
CPT/HCPCS: 88305; J2704; J7120

== ENCOUNTER → 2025-04-05 | Outpatient (CLI) | payer MEDICARE, OTHER ==
[~2025-04-05] MED LIST changes: -Lactated Ringer's 1,000 ML IV SCH
[2025-04-05 11:01] LABS: BASOPHILS ABSOLUTE AUTO 0.07 K/mm3 (0.00-0.23); BASOPHILS PERCENT AUTO 1 % (0-2); EOSINOPHILS ABSOLUTE AUTO 0.34 K/mm3 (0.00-0.68); EOSINOPHILS PERCENT AUTO 5 % (0-6); Hematocrit 44.6 % (37.0-53.0); Hemoglobin 15.1 g/dL (13.5-17.5); IMMATURE GRAN ABSOLUTE AUTO 0.02 K/mm3 (0.00-0.10); IMMATURE GRAN PERCENT AUTO 0 % (0-1); LYMPHOCYTES ABSOLUTE AUTO 1.07 K/mm3 (0.84-5.20); LYMPHOCYTES PERCENT AUTO 17 % (21-46); MONOCYTES ABSOLUTE AUTO 0.73 K/mm3 (0.16-1.47); MONOCYTES PERCENT AUTO 11 % (4-13); Mean Corpuscular HGB 31.2 pg (26.0-34.0); Mean Corpuscular HGB Conc 33.9 g/dL (31.5-36.5); Mean Corpuscular Volume 92 fL (80-100); Mean Platelet Volume 8.5 fL (9.1-12.4); NEUTROPHILS ABSOLUTE AUTO 4.26 K/mm3 (1.96-9.15); NEUTROPHILS PERCENT AUTO 66 % (41-73); Platelet Count 307 K/mm3 (150-400); RDW Coefficient Variation 12.6 % (11.7-14.2); RDW Standard Deviation 42.3 fL (35.1-46.3); Red Blood Cell Count 4.84 M/mm3 (4.30-5.90); White Blood Cell Count 6.49 K/mm3 (4.00-11.30)
[2025-04-05 11:11] LABS: Albumin, Blood 3.8 g/dL (3.4-5.0); Albumin/Globulin Ratio 1.1 (0.8-1.8); Bilirubin, Total 0.9 mg/dL (0.1-1.0); Bun/Creatinine Ratio 12.7 (12.0-20.0); Calcium, Blood 8.9 mg/dL (8.5-10.1); Creatinine, Blood 0.71 mg/dL (0.60-1.20); Globulin, Blood 3.5 g/dL (2.2-4.0); Potassium, Blood 3.8 mmol/L (3.5-5.5); Total Protein, Blood 7.3 g/dL (6.4-8.2)
== END | disposition home or self-care (01) ==
LOC: LAB SHORT 10:56 → LAB 10:56
PROVIDERS: Emergency Medicine
DX: L03.116 Cellulitis of left lower limb (principal)
CPT/HCPCS: 80053; 85025; 85651; 86140

== ENCOUNTER → 2025-05-12 | Outpatient (CLI) | payer OTHER, MEDICARE | LOC: LAB 08:00 → LAB SHORT 08:00 | DX: E11.621 Type 2 diabetes mellitus with foot ulcer (principal); L97.529 Non-pressure chronic ulcer of other part of left foot with unspecified severity; M86.679 Other chronic osteomyelitis, unspecified ankle and foot | CPT/HCPCS: 88305; 88311 ==